=== PATIENT | male | born 1975 | race Two or more races ===

== ENCOUNTER 2018-04-02 19:19 | Emergency (ER) | payer OTHER ==
[~2018-04-02] VITALS: Ht 182.9 cm; Wt 135.0 kg
[2018-04-02 20:11] LABS: BASOPHILS # (AUTO) 0.09 x10^3/uL (0-0.1); BASOPHILS % (AUTO) 1 % (0-1); EOSINOPHILS # (AUTO) 0.11 x10^3/uL (0-0.4); EOSINOPHILS % (AUTO) 1 % (1-7); LYMPHOCYTES # (AUTO) 2.71 x10^3/uL (1-3.4); LYMPHOCYTES % (AUTO) 25 % (22-44); MD NO; MEAN CORPUSCULAR HGB CONC 34.3 g/dL (33.2-36.2); MEAN CORPUSCULAR VOLUME 84.5 fL (81-97); MONOCYTES # (AUTO) 0.57 x10^3/uL (0.2-0.8); MONOCYTES % (AUTO) 5 % (2-9); NEUTROPHILS # (AUTO) 7.23 x10^3/uL (1.8-6.8); NEUTROPHILS % (AUTO) 68 % (42-75); PLATELET COUNT 275 x10^3/uL (130-400); RED BLOOD COUNT 5.36 x10^6/uL (4.38-5.82); RED CELL DISTRIBUTION WIDTH 13.7 % (9.4-14.8)
[2018-04-02 20:21] LABS: ANION GAP 9 mmol/L (5-15); CALCIUM 8.9 mg/dL (8.5-10.1); CHLORIDE 103 mmol/L (98-107); CREATININE 1.38 mg/dL (0.7-1.3)
[2018-04-02 20:24] LABS: TROPONIN I < 0.015 ng/mL (0.000-0.045)
[2018-04-02 22:28] LABS: TROPONIN I < 0.015 ng/mL (0.000-0.045)
[2018-04-02] MEDS ORDERED: IBUPROFEN 200 MG TABLET ONE (23:25)
[2018-04-02 23:28] VITALS: BP 141/98
[2018-04-02] MEDS ORDERED: IBUPROFEN 800 MG TABLET PO ONE (23:30)
== END 2018-04-02 23:30 | disposition home or self-care (01) ==
LOC: ED 22:44
DX: R42 Dizziness and giddiness (principal); R07.89 Other chest pain; R20.0 Anesthesia of skin
CPT/HCPCS: 36415; 70551; 71045; 80048; 82040; 83880; 84484; 85025; 93005; 99285